=== PATIENT | female | born 1985 | race Caucasian/White ===

== ENCOUNTER 2020-05-17 14:24 | Outpatient (CLI) | payer MEDICAID ==
[2020-05-17] MEDS ORDERED: ASCO-134 PO (15:32)
[2020-05-17] MEDS ORDERED: TURM500C4 PO (15:32)
[2020-05-17] MEDS ORDERED: ASHWAGANDA PO (15:32)
[2020-05-17] MEDS ORDERED: LACT1CAP65 PO (15:32)
[2020-05-17] MEDS ORDERED: FERR236T3 PO (15:32)
[2020-05-17] MEDS ORDERED: NIAC-34 PO (15:32)
[2020-05-17] MEDS ORDERED: MULT-1085 PO (15:32)
[2020-05-17] MEDS ORDERED: MAGN250T11 PO (15:32)
[2020-05-17] MEDS ORDERED: OMEP-50 PO (15:32)
[2020-05-17 16:34] LABS: BASOPHILS % (AUTO) 0.4 % (0-1); EOSINOPHILS # (AUTO) 0.1 X10'3 (0-0.9); LYMPHOCYTES # (AUTO) 1.9 X10'3 (1.1-4.8); MEAN CORPUSCULAR HGB CONC 32.8 g/dL (33.0-36.5); MEAN CORPUSCULAR VOLUME 91.6 FL (78-98); MEAN PLATELET VOLUME 8.5 FL (7.4-10.4); MONOCYTES # (AUTO) 0.5 X10'3 (0-0.9); MONOCYTES % (AUTO) 7.2 % (2-12); NEUTROPHILS # (AUTO) 5.1 X10'3 (1.8-7.7); NEUTROPHILS % (AUTO) 66.4 % (42-75); PRE OP HEMATOCRIT 39.8 % (35.0-45.0); PRE OP PLATELET COUNT 335 X10'3 (140-440); RED BLOOD COUNT 4.34 X10'6 (4.20-5.60); RED CELL DISTRIBUTION WIDTH 12.6 % (11.5-14.5)
[2020-05-17 16:37] LABS: ALBUMIN/GLOBULIN RATIO 1.1 (1.1-1.5); ALKALINE PHOSPHATASE 49 IU/L (46-116); BLOOD UREA NITROGEN 9 MG/DL (7-18); BUN/CREATININE RATIO 13.8 (6.6-38.0); CALCIUM 9.2 MG/DL (8.5-10.1); CHLORIDE 106 MMOL/L (99-107); CREATININE 0.65 MG/DL (0.40-0.90); PRE OP ALT 14 U/L (30-65); PRE OP ANION GAP 9 (8-16); PRE OP AST 9 U/L (10-37); PRE OP BILIRUB, TOTAL 0.7 MG/DL (0.0-1.0); PRE OP GLUCOSE 85 MG/DL (70-104); PRE OP POTASSIUM 3.7 MMOL/L (3.4-5.1); PRE OP SODIUM 145 MMOL/L (135-145); TOTAL CARBON DIOXIDE 29.7 MMOL/L (24-32); TOTAL PROTEIN 7.7 G/DL (6.4-8.2); eGFR > 90 ML/MIN
[2020-05-17 16:46] LABS: CLARITY,URINE CLEAR (Clear); COLOR,URINE YELLOW (Yellow); GLUCOSE, URINE NEGATIVE (Neg); KETONES,URINE NEGATIVE (Neg); LEUKOCYTE ESTERASE ,URINE TRACE (Neg); NITRITES, URINE NEGATIVE (Neg); OCCULT BLOOD,URINE TRACE-LYSED (Neg); PROTEIN,URINE NEGATIVE (Neg); UROBILINOGEN,URINE 0.2 E.U/dL (0.2-1.0)
[2020-05-17 17:11] LABS: UA COLLECTION TYPE CLN CATCH MIDSTREAM
[2020-05-17 17:15] LABS: MUCUS STRANDS FEW /LPF (Neg); SQUAMOUS EPITHELIAL CELL,UR MODERATE /LPF (FEW)
[2020-05-17 17:17] LABS: BACTERIA,URINE FEW /HPF (Neg); RBC,URINE 0-2 /HPF (0-2); WBC,URINE 0-4 /HPF (0-4)
[2020-05-17 17:45] LABS: HCG SERUM QL NEGATIVE
== END 2020-05-18 23:59 | disposition home or self-care (01) ==
LOC: PRE-OP 14:24 → EDSTATUS 05-24 10:00
PROVIDERS: ATTEND Obstetrics & Gynecology Obstetrics
DX: Z01.812 Encounter for preprocedural laboratory examination (principal); Z20.828 Contact with and (suspected) exposure to other viral communicable diseases
CPT/HCPCS: 36415; 71046; 80053; 81001; 84703; 85025; 86885; 86900; 86901; 87088; 87635

== ENCOUNTER 2020-06-28 11:25 | Day surgery (SDC) | payer MEDICAID ==
[2020-06-21 16:01] LABS: CLARITY,URINE CLEAR (Clear); COLOR,URINE STRAW (Yellow); GLUCOSE, URINE NEGATIVE (Neg); KETONES,URINE NEGATIVE (Neg); LEUKOCYTE ESTERASE ,URINE NEGATIVE (Neg); NITRITES, URINE NEGATIVE (Neg); OCCULT BLOOD,URINE NEGATIVE (Neg); PROTEIN,URINE NEGATIVE (Neg); UROBILINOGEN,URINE 0.2 E.U/dL (0.2-1.0)
[2020-06-21 16:05] LABS: UA COLLECTION TYPE CLN CATCH MIDSTREAM
[2020-06-21 16:08] LABS: BASOPHILS % (AUTO) 0.5 % (0-1); EOSINOPHILS # (AUTO) 0.1 X10'3 (0-0.9); EOSINOPHILS % (AUTO) 0.8 % (0-6); HCG SERUM QL NEGATIVE; LYMPHOCYTES # (AUTO) 2.1 X10'3 (1.1-4.8); LYMPHOCYTES % (AUTO) 30.3 % (21-51); MEAN CORPUSCULAR HEMOGLOBIN 30.9 PG (27.0-31.0); MEAN CORPUSCULAR HGB CONC 33.1 g/dL (33.0-36.5); MEAN CORPUSCULAR VOLUME 93.4 FL (78-98); MEAN PLATELET VOLUME 7.5 FL (7.4-10.4); MONOCYTES # (AUTO) 0.5 X10'3 (0-0.9); MONOCYTES % (AUTO) 6.7 % (2-12); NEUTROPHILS # (AUTO) 4.3 X10'3 (1.8-7.7); NEUTROPHILS % (AUTO) 61.7 % (42-75); PRE OP HEMATOCRIT 38.3 % (35.0-45.0); PRE OP HEMOGLOBIN 12.7 g/dL (12.0-16.0); PRE OP PLATELET COUNT 367 X10'3 (140-440); RED CELL DISTRIBUTION WIDTH 13.3 % (11.5-14.5)
[2020-06-21 16:13] LABS: ALBUMIN/GLOBULIN RATIO 1.1 (1.1-1.5); ALKALINE PHOSPHATASE 48 IU/L (46-116); BLOOD UREA NITROGEN 9 MG/DL (7-18); BUN/CREATININE RATIO 13.6 (6.6-38.0); CALCIUM 9.1 MG/DL (8.5-10.1); CHLORIDE 106 MMOL/L (99-107); CREATININE 0.66 MG/DL (0.40-0.90); PRE OP ALT 15 U/L (30-65); PRE OP ANION GAP 7 (8-16); PRE OP AST 9 U/L (10-37); PRE OP BILIRUB, TOTAL 0.6 MG/DL (0.0-1.0); PRE OP GLUCOSE 89 MG/DL (70-104); PRE OP POTASSIUM 3.8 MMOL/L (3.4-5.1); PRE OP SODIUM 142 MMOL/L (135-145); TOTAL CARBON DIOXIDE 28.6 MMOL/L (24-32); TOTAL PROTEIN 7.6 G/DL (6.4-8.2); eGFR > 90 ML/MIN
[2020-06-28] VITALS (12 sets, daily range): BP systolic 95–112; BP diastolic 53–76
[~2020-06-28] VITALS: Ht 157.5 cm; Wt 61.6 kg
[~2020-06-28 11:25] MED LIST: ASCO-134 PO; ASHWAGANDA PO; FERR236T3 PO; LACT1CAP65 PO; MAGN250T11 PO; MULT-1085 PO; NIAC-34 PO; OMEP-50 PO; TURM500C4 PO; ceFOXitin 2GM-NS 100mL ADDvant 100 ML IV ONE; famotidine 20mg tablet PO ONE; ringers solution, lacted 1,000 ML IV SCH
[2020-06-28] MEDS ORDERED: morphine 4 MG/ML inj SYRINge IV PRN (12:35)
[2020-06-28] MEDS ORDERED: morphine 2 MG/ML inj. syringe IV PRN (12:35)
[2020-06-28] MEDS ORDERED: proCHLORperazine 10 MG/2 ml inj IV PRN (12:35)
[2020-06-28] MEDS ORDERED: ondansetron/PF 4mg/2ml inj IV PRN (12:35)
[2020-06-28] MEDS ORDERED: ringers solution, lacted 1,000 ML IV SCH (12:35)
[2020-06-28] MEDS ORDERED: meperidine/PF 25mg/ml syringe IV PRN ×3 (12:35)
[2020-06-28] MEDS ORDERED: aprepitant 40mg capsule PO ONE (13:09)
[2020-06-28] MEDS ORDERED: BUPIVAcaine/PF 2.5 mg/ml (0.25%) 30ml vial ONE (14:29)
[2020-06-28] MEDS ORDERED: midazolam 2 mg/2 ml injection ONE (14:36)
[2020-06-28] MEDS ORDERED: fentaNYL/PF 50MCG/1 ML 2ML syringe ONE (14:36)
[2020-06-28] MEDS ORDERED: glycopyrrolate 0.2mg/ml inj ONE (14:37)
[2020-06-28] MEDS ORDERED: dexamethasone sod phosphate 10mg/ml inj ONE (14:37)
[2020-06-28] MEDS ORDERED: neostigmine methylsulfate 1 MG/ML 10ml vial ONE (14:37)
[2020-06-28] MEDS ORDERED: sevoflurane 250ml liquid IH ONE (14:37)
[2020-06-28] MEDS ORDERED: rocuronium 10mg/ml inj IV ONE (14:37)
[2020-06-28] MEDS ORDERED: ondansetron/PF 4mg/2ml inj ONE (14:53)
[2020-06-28] MEDS ORDERED: ketorolac trometh. 30mg/ml inj. ONE (15:18)
[2020-06-28] MEDS ORDERED: LIDOcaine 2% (20mg/ml) 5ml vial ONE (15:18)
[2020-06-28] MEDS ORDERED: propofol inj 20 ML IV ONE (15:18)
--- NOTE | 2020-06-28 15:45 | NUR ---
Received from OR via [facility], accompanied by Anesthesiologist DR SUAREZ and report given by Anesthesiologist. PT DROWSY, DENEIS PAIN, ABDOMEN W/1 SMALL LAP SITE W/DERMABOND CDI. LEFT UPPER INSIDE OF ARM W/BANDAID CDI, MELINDA PAD IN PLACE. Addendum: 06/28/20 at 1654 by Georgia Srivastava RN Amended: Links added.
--- NOTE | 2020-06-28 17:35 | NUR ---
PT UP AND ABLE TO AMBULATE SAFELY, PAIN IS UNDER CONTROL AND NAUSEA HAS SUBSIDED. D/C INSTRUCTIONS GIVEN AND GONE OVER W/PT WHO VERBALIZED UNDERSTANDING. PT D/CD TO HOME VIA W/C TO PRIVATE VEHICLE W/O INCIDENT. Addendum: 06/28/20 at 1910 by Georgia Srivastava RN Amended: Links added.
== END 2020-06-28 17:35 | disposition home or self-care (01) ==
LOC: PAS 11:25
PROVIDERS: ATTEND Obstetrics & Gynecology Obstetrics
DX: Z30.2 Encounter for sterilization (principal); Z30.46 Encounter for surveillance of implantable subdermal contraceptive; Z20.822 Contact with and (suspected) exposure to COVID-19; K21.9 Gastro-esophageal reflux disease without esophagitis; Z88.8 Allergy status to other drugs, medicaments and biological substances; Z79.899 Other long term (current) drug therapy; Z82.49 Family history of ischemic heart disease and other diseases of the circulatory system; Z83.3 Family history of diabetes mellitus
CPT/HCPCS: 11982; 36415; 58671; 80053; 81003; 82948; 84703; 85025; 86885; 86900; 86901; 87635; A4264; J0694; J0780; J1885; J2001; J2175; J2250; J2405; J2704; J3010; J3490; J8501; A4618; J1100; J2710; J7120